=== PATIENT | male | born 1995 | race Caucasian/White ===

== ENCOUNTER 2017-02-23 16:46 | Emergency (ER) | payer BC ==
--- NOTE | 2017-02-23 17:19 | CPEKG ---
Heart Rate: 75 RR Interval: 800 P-R Interval: 140 QRSD Interval: 114 QT Interval: 360 QTC Interval: 402 P [place]: 73 QRS [place]: 67 T Wave [place]: 57 EKG Severity - ABNORMAL ECG - EKG Impression: SINUS RHYTHM EKG Impression: NONSPECIFIC INTRAVENTRICULAR CONDUCTION DELAY Electronically Signed By: Adina Hercules 23-Feb-2017 20:57:49
--- NOTE | 2017-02-23 17:19 | CPEKG ---
Heart Rate: 75 RR Interval: 800 P-R Interval: 140 QRSD Interval: 114 QT Interval: 360 QTC Interval: 402 P [place]: 73 QRS [place]: 67 T Wave [place]: 57 EKG Severity - ABNORMAL ECG - EKG Impression: SINUS RHYTHM EKG Impression: NONSPECIFIC INTRAVENTRICULAR CONDUCTION DELAY Electronically Signed By: Adina Hercules 23-Feb-2017 20:57:49
[2017-02-23] MEDS ORDERED: ASPIRIN 81 MG CHEWABLE TAB PO ONE (17:23)
[2017-02-23] MEDS ORDERED: LIDOCAINE 2% VISCOUS 15 ML UDCUP PO ONE (17:23)
[2017-02-23] MEDS ORDERED: MAG HYDROX/AL HYDROX/SIMETH 30 ML UDCUP PO ONE (17:23)
--- NOTE | 2017-02-23 17:23 | EDPHY ---
H & P Time Seen by Provider: 02/23/17 17:11 HPI/ROS: CHIEF COMPLAINT: Chest pain HISTORY OF PRESENT ILLNESS: Patient is a 21-year-old male who presents emergency department with chest pain started on Tuesday. Patient states he has a history of anxiety and panic attacks previously. This feels different. His chest pain is substernal. It does not radiate. It has been waxing waning but constant throughout the day. No shortness of breath. No cough or fever. No nausea or vomiting. No abdominal pain. The patient does drink alcohol regularly. REVIEW OF SYSTEMS: My complete review of systems is negative except as mentioned in the HPI. Past Medical/Surgical History: Anxiety Past surgical history: Negative Social History: Patient denies drugs or tobacco. He drinks alcohol. Smoking Status: Never smoked Physical Exam: Vitals noted GENERAL: Well-appearing, in no acute distress, alert. HEENT: Eyes normal to inspection, normal pharynx, no signs of dehydration. NECK: No thyromegaly, no lymphadenopathy, supple. RESPIRATORY: Clear to auscultation bilaterally, no rales, rhonchi or wheezing. CVS: Regular rate and rhythm, no rubs, murmurs, or gallops. ABDOMEN: Soft, nontender, nondistended, no organomegaly. BACK: Normal to inspection, no CVA tenderness. SKIN: Normal color, no rash, warm, dry. No pallor. EXTREMITIES: No pedal edema, no calf tenderness, no Homans sign or cords, no joint swelling. NEURO/PSYCH: Alert and oriented, normal mood and affect, normal motor sensory exam. Constitutional: Initial Vital Signs Temperature (C) 37.0 C 02/23/17 16:49 Heart Rate 80 02/23/17 16:49 Respiratory Rate 18 02/23/17 16:49 Blood Pressure 135/82 H 02/23/17 16:49 O2 Sat (%) 97 02/23/17 16:49 O2 Delivery Mode Room Air Allergies/Adverse Reactions: No Known Allergies Allergy (Unverified 02/23/17 16:52) Home Medications: Medication Instructions Recorded Multivitamin 02/23/17 Medical Decision Making ED Course/Re-evaluation: In the emergency department an IV was placed. Laboratory studies were obtained. Patient was given aspirin orally. He was given a GI cocktail. EKG shows normal sinus rhythm, normal rate, normal axis, normal intervals. There are no ST or T-wave abnormalities. EKG is normal as interpreted by me. IV the patient's laboratory studies. His CBC, troponin and D-dimer negative. Discussed the results with the patient. I answered all his questions. He is given warnings prior to leaving. He will follow up with primary care physician. Differential Diagnosis: My differential includes but is not limited to pericarditis, myocarditis, ACS, acute [place], GERD, pancreatitis - Data Points Laboratory Results: Laboratory Results 02/23/17 17:45 02/23/17 17:45 02/23/17 02/23/17 02/23/17 17:45 17:45 17:45 WBC 6.43 10^3/uL 10^3/uL (3.80-9.50) RBC 5.32 10^6/uL 10^6/uL (4.40-6.38) Hgb 15.9 g/dL g/dL (13.7-17.5) Hct 45.1 % % (40.0-51.0) MCV 84.8 fL fL (81.5-99.8) MCH 29.9 pg pg (27.9-34.1) MCHC 35.3 g/dL g/dL (32.4-36.7) RDW 13.6 % % (11.5-15.2) Plt Count 233 10^3/uL 10^3/uL (150-400) MPV 10.4 fL fL (8.7-11.7) Neut % (Auto) 56.0 % % (39.3-74.2) Lymph % (Auto) 34.5 % % (15.0-45.0) [place] % (Auto) 7.5 % % (4.5-13.0) Eos % (Auto) 1.1 % % (0.6-7.6) Baso % (Auto) 0.6 % % (0.3-1.7) Nucleat RBC Rel Count 0.0 % % (0.0-0.2) Absolute Neuts (auto) 3.60 10^3/uL 10^3/uL (1.70-6.50) Absolute Lymphs (auto) 2.22 10^3/uL 10^3/uL (1.00-3.00) Absolute Monos (auto) 0.48 10^3/uL 10^3/uL (0.30-0.80) Absolute Eos (auto) 0.07 10^3/uL 10^3/uL (0.03-0.40) Absolute Basos (auto) 0.04 10^3/uL 10^3/uL (0.02-0.10) Absolute Nucleated RBC 0.00 10^3/uL 10^3/uL (0-0.01) Immature Gran % 0.3 % % (0.0-1.1) Immature Gran # 0.02 10^3/uL 10^3/uL (0.00-0.10) D-Dimer < 0.27 ug/mLFEU ug/mLFEU (0.00-0.50) Sodium 143 mEq/L mEq/L (134-144) Potassium 4.2 mEq/L mEq/L (3.5-5.2) Chloride 105 mEq/L mEq/L (97-110) Carbon Dioxide 24 mEq/l mEq/l (22-31) Anion Gap 14 mEq/L mEq/L (8-16) BUN 15 mg/dL mg/dL (7-23) Creatinine 0.8 mg/dL mg/dL (0.7-1.3) Estimated GFR > 60 Glucose 88 mg/dL mg/dL (70-100) Calcium 9.7 mg/dL mg/dL (8.5-10.4) Total Bilirubin 0.5 mg/dL mg/dL (0.1-1.4) Conjugated Bilirubin 0.1 mg/dL mg/dL (0.0-0.5) Unconjugated Bilirubin 0.4 mg/dL mg/dL (0.0-1.1) AST 24 IU/L IU/L (17-59) ALT 41 IU/L IU/L (21-72) Alkaline Phosphatase 75 IU/L IU/L (38-126) Troponin I < 0.012 ng/mL ng/mL (0.000-0.034) Total Protein 7.1 g/dL g/dL (6.3-8.2) Albumin 4.6 g/dL g/dL (3.5-5.0) Lipase 98 IU/L IU/L (23-300) Medications Given: Discontinued Medications Al Hydroxide/Mg Hydroxide (Maalox Susp) 30 ml PO ONCE ONE Stop: 02/23/17 17:24 Last Admin: 02/23/17 17:33 Dose: 30 ml Aspirin (Aspirin) 324 mg PO EDNOW ONE Stop: 02/23/17 17:24 Last Admin: 02/23/17 17:33 Dose: 324 mg Lidocaine (Lidocaine 2% Viscous) 15 ml PO ONCE ONE Stop: 02/23/17 17:24 Last Admin: 02/23/17 17:33 Dose: 15 ml Departure - Departure Disposition: Home, Routine, Self-Care Clinical Impression: Chest pain Qualifiers: Chest pain type: unspecified Qualified Code(s): R07.9 - Chest pain, unspecified Condition: Good Instructions: Chest Pain (ED) Additional Instructions: Your laboratory studies were unremarkable. Return with increasing pain, shortness of breath or any other concerns. Referrals: AMBER AGUIAR [Other] - 2-3 days, call for appt.
[2017-02-23 18:13] LABS: PLATELET COUNT 233 10^3/uL (150-400)
[2017-02-23 19:12] VITALS: BP 130/96; PULSE 82; RESP 16; TEMP 99; O2SAT 96
== END 2017-02-23 19:10 | disposition home or self-care (01) ==
DX: R07.9 Chest pain, unspecified (principal)